=== PATIENT | female | born 1945 | race Caucasian/White ===

== ENCOUNTER 2017-02-16 23:02 | Inpatient (IN) | payer OTHER, MEDICAID ==
[~2017-02-16] VITALS: Ht 157.5 cm; Wt 93.0 kg
[2017-02-16] MEDS ORDERED: SODIUM CHLORIDE 0.9% 1,000 ML IV ONE (23:33)
[2017-02-16] MEDS ORDERED: ONDANSETRON HCL 4MG/2ML VIAL IV STA (23:33)
[2017-02-16] MEDS ORDERED: MORPHINE SULFATE 4 MG/ML CPJ (NOT FOR IM USE) IV STA (23:33)
[2017-02-16] MEDS ORDERED: METRONIDAZOLE 500 MG PREMIX 100 ML IV ONE (23:45)
[2017-02-16] MEDS ORDERED: LEVOFLOXACIN 750MG PREMIX 150 ML IV ONE (23:45)
[2017-02-17] VITALS (21 sets, daily range): BP systolic 91–137; BP diastolic 38–80
[2017-02-17 00:02] LABS: INR 1.2; PROTHROMBIN TIME 12.5 sec
[2017-02-17 00:10] LABS: CARBON DIOXIDE 24 mEq/L (21-32); CHLORIDE 107 mEq/L (98-107); TROPONIN I < 0.02 ng/mL (0.00-0.04)
[2017-02-17 00:27] LABS: BASOPHILS % 0.3 % (0.0-2.0); EOSINOPHILS % 0.1 % (0.0-5.0); MEAN CORPUSCULAR VOLUME 87.1 fL (81.0-99.0); MEAN PLATELET VOLUME 9.4 fl (7.4-10.4); MONOCYTES % 4.9 % (2.0-8.0); NEUTROPHILS % 82.7 % (40.0-76.0); PLATELET 116 x1000/uL (130-400); RED BLOOD CELL COUNT 1.86 mill/uL (4.2-5.4); RED CELL DISTRIBUTION WIDTH 15.4 % (11.6-14.6)
[2017-02-17 00:30] LABS: HEMATOCRIT. 16.3 % (36.0-48.0); HEMOGLOBIN. 5.6 g/dL (12.0-16.0)
[2017-02-17] MEDS ORDERED: CLONIDINE 0.1MG TABLET PO PRN (01:00)
[2017-02-17] MEDS ORDERED: DOCUSATE SODIUM 100MG CAPSULE PO PRN (01:00)
[2017-02-17] MEDS ORDERED: DIPHENHYDRAMINE 50MG/ML VIAL IV PRN (01:00)
[2017-02-17] MEDS ORDERED: HYDROCODONE/APAP 7.5/325MG 1 TAB TABLET PO PRN (01:00)
[2017-02-17] MEDS ORDERED: ONDANSETRON HCL 4MG/2ML VIAL IV PRN (01:00)
[2017-02-17] MEDS ORDERED: ACETAMINOPHEN 325MG TABLET PO PRN (01:00)
[2017-02-17] MEDS ORDERED: HYDROMORPHONE HCL/PF 2MG/ML CPJ IV PRN (01:00)
[2017-02-17] MEDS ORDERED: MAGNESIUM/ALUMINUM HYDROXIDE/SIMETHICONE 30ML UDC PO PRN (01:00)
[2017-02-17] MEDS ORDERED: IPRATROPIUM/ALBUTEROL 0.5-3(2.5)MG/3ML NEB INH PRN (01:00)
[2017-02-17] MEDS ORDERED: NA PHOS,M-B/NA PHOS,DI-BA ENEMA 118ML PR PRN (01:00)
[2017-02-17] MEDS ORDERED: GUAIFENESIN 200MG/10ML SUGAR FREE UDC PO PRN (01:00)
[2017-02-17 01:11] LABS: CHLORIDE 108 mEq/L (98-107)
[2017-02-17 01:16] LABS: CARBON DIOXIDE 24 mEq/L (21-32)
[2017-02-17] MEDS ORDERED: DEXTROSE 50% WATER 50ML SYRINGE IV PRN (02:30)
[2017-02-17] MEDS ORDERED: KCL 10MEQ/50ML PREMIX 50 ML IV NR (04:00)
[2017-02-17] MEDS: SODIUM CHLORIDE 0.45% 1,000 ML IV SCH ×2 (04:49→15:10)
[2017-02-17] MEDS ORDERED: METF850T2 PO (05:14)
[2017-02-17] MEDS ORDERED: ATOR40TA70 PO (05:14)
[2017-02-17] MEDS ORDERED: IBUP-1509 PO (05:14)
[2017-02-17] MEDS ORDERED: RANI150T7 PO (05:14)
[2017-02-17] MEDS ORDERED: LOSA25TA12 PO (05:14)
[2017-02-17] MEDS ORDERED: ASPI-1159 PO (05:14)
[2017-02-17] MEDS ORDERED: GLIP10TA10 PO (05:15)
[2017-02-17] MEDS: METRONIDAZOLE 500 MG PREMIX 100 ML IV SCH ×3 (06:44→23:07)
[2017-02-17] MEDS: BLOOD SUGAR DIAGNOSTIC STRIP TEST SCH ×4 (06:45→21:32)
[2017-02-17] MEDS: INSULIN LISPRO 100 UNITS/ML SUBCUT SCH ×4 (07:20→21:48)
[2017-02-17] MEDS ORDERED: POTASSIUM CHLORIDE 20MEQ TABLET SR PO SCH (08:00)
[2017-02-17 09:15] LABS: BASOPHILS % 0.4 % (0.0-2.0); EOSINOPHILS % 0.5 % (0.0-5.0); LYMPHOCYTES % 18.6 % (20.0-50.0); MEAN CORPUSCULAR HEMOGLOBIN 29.7 pg (28.0-32.0); MEAN PLATELET VOLUME 10.2 fl (7.4-10.4); MONOCYTES % 6.4 % (2.0-8.0); NEUTROPHILS % 74.1 % (40.0-76.0); PLATELET 103 x1000/uL (130-400); RED BLOOD CELL COUNT 2.36 mill/uL (4.2-5.4)
[2017-02-17 09:19] LABS: HEMATOCRIT. 20.6 % (36.0-48.0)
[2017-02-17 09:37] LABS: CARBON DIOXIDE 24 mEq/L (21-32); CHLORIDE 109 mEq/L (98-107); HDL CHOLESTEROL 25 mg/dL (40-59); LDL CHOLESTEROL 41 mg/dL (5-100); T4 FREE 0.93 ng/dL (0.76-1.46)
[2017-02-17] MEDS ORDERED: POTASSIUM CHLORIDE 20MEQ TABLET SR PO NR (10:15)
[2017-02-17] MEDS ORDERED: IOHEXOL-300 100 ML BOTTLE ONE (14:28)
[2017-02-17] MEDS ORDERED: SODIUM CHLORIDE 0.9% 10ML VIAL ONE (14:28)
[2017-02-17] MEDS: PANTOPRAZOLE SODIUM 40 MG/VIAL IV SCH (15:14)
[2017-02-17 21:16] LABS: HEMOGLOBIN 7.8 g/dL (12.0-16.0)
[2017-02-18] VITALS (70 sets, daily range): BP systolic 75–136; BP diastolic 33–85
[2017-02-18] MEDS ORDERED: LEVOFLOXACIN 500MG PREMIX 100 ML IV SCH (01:00)
[2017-02-18 01:05] LABS: HEMATOCRIT 19.7 % (36.0-48.0)
[2017-02-18 04:09] LABS: BASOPHILS % 0.4 % (0.0-2.0); EOSINOPHILS % 1.3 % (0.0-5.0); LYMPHOCYTES % 30.2 % (20.0-50.0); MEAN CORPUSCULAR HEMOGLOBIN 30.6 pg (28.0-32.0); MEAN CORPUSCULAR VOLUME 87.4 fL (81.0-99.0); MEAN PLATELET VOLUME 9.7 fl (7.4-10.4); MONOCYTES % 8.1 % (2.0-8.0); PLATELET 86 x1000/uL (130-400); RED BLOOD CELL COUNT 2.26 mill/uL (4.2-5.4); RED CELL DISTRIBUTION WIDTH 14.8 % (11.6-14.6)
[2017-02-18 04:12] LABS: HEMOGLOBIN. 6.9 g/dL (12.0-16.0)
[2017-02-18 04:13] LABS: HEMATOCRIT. 19.8 % (36.0-48.0)
[2017-02-18 04:18] LABS: CARBON DIOXIDE 26 mEq/L (21-32); CHLORIDE 111 mEq/L (98-107)
[2017-02-18] MEDS: LORAZEPAM 2MG/ML CPJ IV PRN ×2 (05:49→18:43)
[2017-02-18] MEDS: METRONIDAZOLE 500 MG PREMIX 100 ML IV SCH ×3 (06:42→22:19)
[2017-02-18] MEDS: BLOOD SUGAR DIAGNOSTIC STRIP TEST SCH ×4 (06:46→21:35)
[2017-02-18] MEDS: INSULIN LISPRO 100 UNITS/ML SUBCUT SCH ×4 (07:17→22:11)
[2017-02-18] MEDS ORDERED: POTASSIUM CHLORIDE 20MEQ TABLET SR PO NR (08:08)
[2017-02-18] MEDS: PANTOPRAZOLE SODIUM 40 MG/VIAL IV SCH (08:20)
[2017-02-18 08:29] LABS: HEMATOCRIT 21.4 % (36.0-48.0); HEMOGLOBIN 7.4 g/dL (12.0-16.0)
[2017-02-18] MEDS ORDERED: LIDOCAINE HCL 1% 20ML VIAL (Pyxis) INJ ONE (09:28)
[2017-02-18] MEDS ORDERED: SODIUM BICARBONATE 4% (2.4MEQ) 5ML VIAL IV ONE (09:28)
[2017-02-18] MEDS ORDERED: IOHEXOL-300 100 ML BOTTLE ONE ×2 (09:28→11:42)
[2017-02-18] MEDS ORDERED: FENTANYL CITRATE/PF 50MCG/ML 2ML VIAL ONE (11:21)
[2017-02-18] MEDS ORDERED: IOHEXOL-300 50 ML BOTTLE IV ONE (11:57)
[2017-02-18 13:15] LABS: HEMATOCRIT 24.1 % (36.0-48.0); HEMOGLOBIN 8.2 g/dL (12.0-16.0)
[2017-02-18] MEDS: SODIUM CHLORIDE 0.45% 1,000 ML IV SCH (15:01)
[2017-02-18 17:19] LABS: HEMATOCRIT 22.2 % (36.0-48.0); HEMOGLOBIN 7.3 g/dL (12.0-16.0)
[2017-02-18] MEDS ORDERED: CALCIUM CHLORIDE 1,000 MG in DEXT 5% WATER 90 ML IV NR (21:00)
[2017-02-18 22:50] LABS: BASOPHILS % 0.4 % (0.0-2.0); EOSINOPHILS % 0.6 % (0.0-5.0); HEMATOCRIT. 21.1 % (36.0-48.0); HEMOGLOBIN. 7.5 g/dL (12.0-16.0); MEAN CORPUSCULAR HEMOGLOBIN 29.6 pg (28.0-32.0); MEAN CORPUSCULAR VOLUME 83.3 fL (81.0-99.0); MEAN PLATELET VOLUME 9.3 fl (7.4-10.4); MONOCYTES % 5.4 % (2.0-8.0); NEUTROPHILS % 82.6 % (40.0-76.0); PLATELET 110 x1000/uL (130-400); RED BLOOD CELL COUNT 2.54 mill/uL (4.2-5.4); RED CELL DISTRIBUTION WIDTH 15.2 % (11.6-14.6)
[2017-02-19] VITALS (113 sets, daily range): BP systolic 67–133; BP diastolic 5–78
[2017-02-19] MEDS: LEVOFLOXACIN 500MG PREMIX 100 ML IV SCH (02:47)
[2017-02-19 03:27] LABS: BASOPHILS % 0.4 % (0.0-2.0); EOSINOPHILS % 1.6 % (0.0-5.0); HEMATOCRIT. 22.2 % (36.0-48.0); HEMOGLOBIN. 7.6 g/dL (12.0-16.0); LYMPHOCYTES % 18.3 % (20.0-50.0); MEAN CORPUSCULAR HEMOGLOBIN 29.2 pg (28.0-32.0); MEAN CORPUSCULAR VOLUME 85.3 fL (81.0-99.0); MEAN PLATELET VOLUME 9.2 fl (7.4-10.4); MONOCYTES % 6.3 % (2.0-8.0); NEUTROPHILS % 73.4 % (40.0-76.0); PLATELET 99 x1000/uL (130-400)
[2017-02-19 03:33] LABS: INR 1.2; PARTIAL THROMBOPLASTIN TIME 21.9 sec (24.0-34.0); PROTHROMBIN TIME 12.6 sec
[2017-02-19 03:35] LABS: CARBON DIOXIDE 27 mEq/L (21-32); CHLORIDE 110 mEq/L (98-107); PHOSPHORUS 2.7 mg/dL (2.5-4.9)
[2017-02-19] MEDS ORDERED: NOREPINEPHRINE 4 MG in DEXT 5% WATER 246 ML IV PRN (06:30)
[2017-02-19] MEDS: INSULIN LISPRO 100 UNITS/ML SUBCUT SCH ×4 (07:00→21:28)
[2017-02-19] MEDS: BLOOD SUGAR DIAGNOSTIC STRIP TEST SCH ×4 (07:06→21:25)
[2017-02-19] MEDS ORDERED: MAGNESIUM 1 G PREMIX 100 ML IV NR (08:00)
[2017-02-19 09:06] LABS: HEMATOCRIT 25.2 % (36.0-48.0); HEMOGLOBIN 8.6 g/dL (12.0-16.0)
[2017-02-19] MEDS: METRONIDAZOLE 500 MG PREMIX 100 ML IV SCH ×3 (09:24→23:15)
[2017-02-19] MEDS: PANTOPRAZOLE SODIUM 40 MG/VIAL IV SCH (09:24)
[2017-02-19 13:19] LABS: HEMATOCRIT 24.7 % (36.0-48.0); HEMOGLOBIN 8.5 g/dL (12.0-16.0)
[2017-02-19] MEDS: SODIUM CHLORIDE 0.45% 1,000 ML IV SCH ×2 (17:25→21:32)
[2017-02-19 19:20] LABS: HEMOGLOBIN 6.9 g/dL (12.0-16.0)
[2017-02-19 19:21] LABS: HEMATOCRIT 19.9 % (36.0-48.0)
[2017-02-20] VITALS (93 sets, daily range): BP systolic 86–133; BP diastolic 24–88
[2017-02-20] MEDS: LEVOFLOXACIN 500MG PREMIX 100 ML IV SCH (03:01)
[2017-02-20] MEDS: SODIUM CHLORIDE 0.45% 1,000 ML IV SCH ×2 (03:02→13:43)
[2017-02-20 05:32] LABS: CARBON DIOXIDE 25 mEq/L (21-32); CHLORIDE 109 mEq/L (98-107)
[2017-02-20 06:07] LABS: BASOPHILS % 0.4 % (0.0-2.0); EOSINOPHILS % 1.3 % (0.0-5.0); HEMATOCRIT. 25.3 % (36.0-48.0); HEMOGLOBIN. 8.8 g/dL (12.0-16.0); LYMPHOCYTES % 15.7 % (20.0-50.0); MEAN CORPUSCULAR HEMOGLOBIN 30.5 pg (28.0-32.0); MEAN CORPUSCULAR VOLUME 87.7 fL (81.0-99.0); MEAN PLATELET VOLUME 10.2 fl (7.4-10.4); MONOCYTES % 7.1 % (2.0-8.0); NEUTROPHILS % 75.5 % (40.0-76.0); PLATELET 69 x1000/uL (130-400); RED BLOOD CELL COUNT 2.88 mill/uL (4.2-5.4); RED CELL DISTRIBUTION WIDTH 14.9 % (11.6-14.6)
[2017-02-20] MEDS: BLOOD SUGAR DIAGNOSTIC STRIP TEST SCH ×4 (06:51→20:50)
[2017-02-20] MEDS: METRONIDAZOLE 500 MG PREMIX 100 ML IV SCH ×3 (06:51→22:33)
[2017-02-20] MEDS: INSULIN LISPRO 100 UNITS/ML SUBCUT SCH ×4 (07:00→20:56)
[2017-02-20] MEDS: PANTOPRAZOLE SODIUM 40 MG/VIAL IV SCH (09:28)
[2017-02-20 11:06] LABS: HEMATOCRIT 23.7 % (36.0-48.0)
[2017-02-20] MEDS ORDERED: POTASSIUM CHLORIDE INJ 40 MEQ in DEXT 5% WATER 250 ML IV NR (12:00)
[2017-02-20 20:16] LABS: HEMATOCRIT 26.9 % (36.0-48.0)
[2017-02-20] MEDS: LORAZEPAM 2MG/ML CPJ IV PRN (22:40)
[2017-02-21] VITALS: BP 112/69
[2017-02-21 00:08] VITALS: BP 125/73
== END 2017-02-21 00:20 | disposition short-term general hospital (02) | DRG 377 ==
LOC: ER 23:24 → 3WST 02-17 00:45 → ENRESERV 02-17 01:57 → MICUNO 02-18 12:45
PROVIDERS: ADMIT Internal Medicine; ATTEND Internal Medicine
PROC: 30233R1 Transfusion of Nonautologous Platelets into Peripheral Vein, Percutaneous Approach (ICD-10-PCS; 2017-02-17)
PROC: 5A1D00Z (ICD-10-PCS; 2017-02-17)
PROC: 30233N1 Transfusion of Nonautologous Red Blood Cells into Peripheral Vein, Percutaneous Approach (ICD-10-PCS; 2017-02-18)
PROC: B4141ZZ Fluoroscopy of Superior Mesenteric Artery using Low Osmolar Contrast (ICD-10-PCS; 2017-02-18)
PROC: B4151ZZ Fluoroscopy of Inferior Mesenteric Artery using Low Osmolar Contrast (ICD-10-PCS; 2017-02-18)
PROC: 02HV33Z Insertion of Infusion Device into Superior Vena Cava, Percutaneous Approach (ICD-10-PCS; principal; 2017-02-19)
PROC: B548ZZA Ultrasonography of Superior Vena Cava, Guidance (ICD-10-PCS; 2017-02-19)
DX: K92.2 Gastrointestinal hemorrhage, unspecified (principal); G93.41 Metabolic encephalopathy; E46 Unspecified protein-calorie malnutrition; K57.32 Diverticulitis of large intestine without perforation or abscess without bleeding; E87.6 Hypokalemia; D64.9 Anemia, unspecified; D69.6 Thrombocytopenia, unspecified; E11.9 Type 2 diabetes mellitus without complications; E78.00 Pure hypercholesterolemia, unspecified; E78.5 Hyperlipidemia, unspecified; E86.0 Dehydration; I10 Essential (primary) hypertension; J45.909 Unspecified asthma, uncomplicated; K76.0 Fatty (change of) liver, not elsewhere classified; N28.1 Cyst of kidney, acquired; I95.9 Hypotension, unspecified; M19.90 Unspecified osteoarthritis, unspecified site; K57.90 Diverticulosis of intestine, part unspecified, without perforation or abscess without bleeding; Z79.84 Long term (current) use of oral hypoglycemic drugs; Z90.49 Acquired absence of other specified parts of digestive tract; Z88.1 Allergy status to other antibiotic agents; Z68.37 Body mass index [BMI] 37.0-37.9, adult
CPT/HCPCS: 36415; 36569; 71010; 74177; 75726; 75774; 76937; 78278; 80048; 80053; 80061; 82962; 83690; 83735; 83880; 84100; 84439; 84443; 84484; 85014; 85018; 85025; 85610; 85730; 86850; 86900; 86920; 87040; 93005; 93306; 96361; 96365; 96366; 96375; 99291; A4216; A6261; A9560; C1725; C1730; C1760; C1766; C1769; C9113; J1644; J1815; J1956; J2060; J2405; J3010; J3475; J3480; J3490; J7030; J7050; J7060; P9016; P9034; Q9967